=== PATIENT | female | born 1945 | race Caucasian/White ===

== ENCOUNTER 2021-12-11 18:12 | Emergency (ER) | payer MEDICARE, OTHER ==
[2021-12-11] MEDS ORDERED: Ketorolac Tromethamine 30 MG/ML VIAL ONE (19:14)
[2021-12-11] MEDS ORDERED: HYDROcodone/Acetaminophen 10/325 mg Tablet ONE (19:14)
[2021-12-11] MEDS ORDERED: Lidocaine 1% w/Epinephrine 1:100K 20 ML VIAL ONE (19:15)
== END 2021-12-11 21:37 | disposition home or self-care (01) ==
LOC: ERS 18:12
DX: S02.42XA Fracture of alveolus of maxilla, initial encounter for closed fracture (principal); S01.511A Laceration without foreign body of lip, initial encounter; I10 Essential (primary) hypertension; W19.XXXA Unspecified fall, initial encounter
CPT/HCPCS: 12011; 70450; 70486; J1885